=== PATIENT | female | born 1990 | race Caucasian/White ===

== ENCOUNTER → 2019-06-22 07:45 | Outpatient (CLI) | payer OTHER, SELFPAY ==
--- NOTE | ~2019-06-22 | US_ITS ---
EXAMINATION: US OB transvaginal DATE: 06/22/2019 08:12 INDICATION: Gestational dating. TECHNIQUE: Real-time transabdominal obstetric ultrasound. FINDINGS: No prior studies for comparison. The uterus measures 11.7 x 5.8 x 6.6 cm. There is an intrauterine gestational sac, with pole id entified. The crown rump length measures 1.66 cm, which correlates with a estimated gestational age of 8 weeks 0 days. heart tones are identified measuring 166 BPM. There is a small subchorioni c hemorrhage measuring 2.1 x 1.5 x 0.6 cm. Right ovary is unremarkable. Left ovary not visualized. IMPRESSION: 1. SL IUP with an EGA of 8 weeks, 0 days (EDC by current ultrasound of 02/01/2020). 2: Small subchorionic hemorrhage. Reviewed, dictated and finalized at location A. ENT ACCOUNTS MANAGER IMPRESSION: 1. SL IUP with an EGA of 8 weeks, 0 days (EDC by current ultrasound of 02/01/20 20). 2: Small subchorionic hemorrhage.
== END ==
PROVIDERS: Visit Provider Obstetrics & Gynecology Gynecology
DX: O20.0 Threatened abortion (principal); Z3A.08 8 weeks gestation of pregnancy
CPT/HCPCS: 76817

== ENCOUNTER → 2019-07-08 11:21 | Outpatient (CLI) | payer OTHER, SELFPAY ==
--- NOTE | ~2019-07-08 | US_ITS ---
EXAMINATION: US OB limited DATE: 07/08/2019 11:39 INDICATION: Rule out subchorionic hemorrhage. TECHNIQUE: Real-time transabdominal obstetric ultrasound. FINDINGS: Comparison to multiple prior studies sequentially, with oldest reviewed study dated . The uterus measures 13.1 x 6.3 x 7.3 cm. There is an intrauterine gestational sac, with pole id entified. The crown rump length measures 3.6 cm. No evidence for subchorionic hemorrhage on prior ex amination.. heart tones are identified measuring 168. IMPRESSION: 1. SL IUP with an EGA of 10 weeks, 2 days (EDC by initial ultrasound of 02/01/2020). 2: Interval resolution of subchorionic hemorrhage. Reviewed, dictated and finalized at location A. IMPRESSION: 1. SL IUP with an EGA of 10 weeks, 2 days (EDC by initial ultrasound of ). 2: Interval resolution of subchorionic hemorrhage.
== END ==
PROVIDERS: PCP Emergency Medicine; Visit Provider Obstetrics & Gynecology Gynecology
DX: O20.8 Other hemorrhage in early pregnancy (principal); Z3A.10 10 weeks gestation of pregnancy
CPT/HCPCS: 76815

== ENCOUNTER 2019-08-27 12:39 | Outpatient (CLI) | payer OTHER, SELFPAY ==
--- NOTE | ~2019-08-27 | US_ITS ---
EXAMINATION: US OB /maternal detail DATE: 08/27/2019 13:29 INDICATION: survey TECHNIQUE: Multiple obstetric sonographic images performed. FINDINGS: Comparison to 07/08/2019 There is a single living fetus in vertex presentation. The placenta is posterior without placenta pr evia. Placental margin is 5.1 cm to the cervix. Amniotic fluid volume is normal. cardiac activity and movement is noted with a heart rate of 149 beats per minute. The following anatomy was identified as normal: 3 vessel cord cord insertion kidneys urinary bladder stomach spine diaphragm ventricles cisterna magna cerebellum Survey is limited for evaluation of four-chamber heart and outflow tracts due to lie. The following biometric data were obtained: BPD: 38mm corresponds to gestational age 17 weeks 4 days. Head circumference: 148 mm corresponds to gestational age 17 weeks 6 days. Abdominal circumference: 112 mm corresponds to gestational age 17 weeks 5 days. Femur length: 24 mm corresponds to gestational age 17 weeks 2 days. Head circumference to abdominal circumference ratio: 1.23 (normal range for expected gestational age is 1.08-1.28). Estimated weight: 199 grams +/- 30 grams using Hadlock method. IMPRESSION: 1: Single living intrauterine with an estimated gestational age of 17weeks 5days by initial ultrasound measurements, with an EDC of 01/30/2020 in vertex presentation. Appropriate interval grow th. 2. Limited evaluation of the heart due to position. Otherwise, unremarkable survey . Reviewed, dictated and finalized at location A. IMPRESSION: 1: Single living intrauterine with an estimated gestational age of 17 weeks 5days by initial ultrasound measurements, with an EDC of 01/30/2020 in ve rtex presentation. Appropriate interval growth. 2. Limited evaluation of the heart due to position. Otherwise, unr emarkable survey.
== END 2019-08-27 12:40 | disposition home or self-care (01) ==
LOC: ANHIMG 12:43
PROVIDERS: PCP Emergency Medicine; Visit Provider Obstetrics & Gynecology Gynecology
DX: Z36.89 Encounter for other specified antenatal screening (principal); Z3A.17 17 weeks gestation of pregnancy
CPT/HCPCS: 76805

== ENCOUNTER 2019-09-13 12:38 | Outpatient (CLI) | payer OTHER, SELFPAY ==
--- NOTE | ~2019-09-13 | US_ITS ---
EXAMINATION: US OB limited DATE: 09/13/2019 15:34 INDICATION: Incomplete second trimester anatomic survey TECHNIQUE: Real-time ultrasound of the pelvis was performed. The interpreting radiologist was not pre sent for the study. COMPARISON: 08/27/2019 FINDINGS: There is a single living fetus in vertex presentation. The placenta is posterior. car diac activity and movement are noted. heart rate is 138 beats per minute (bpm). The amnio tic fluid index is subjectively normal. The heart appears normal. IMPRESSION: 1. Single living fetus in vertex presentation. 2. Normal heart. Reviewed, dictated and finalized at location A.
== END 2019-09-13 12:39 | disposition home or self-care (01) ==
PROVIDERS: PCP Emergency Medicine; Visit Provider Obstetrics & Gynecology Gynecology
DX: Z36.2 Encounter for other antenatal screening follow-up (principal)
CPT/HCPCS: 76815

== ENCOUNTER 2019-10-15 10:53 | Observation (INO) | payer OTHER, SELFPAY ==
[2019-10-15] VITALS (7 sets, daily range): BP systolic 114; BP diastolic 60; PULSE 72–92; O2SAT 100
--- NOTE | ~2019-10-15 | US_ITS ---
EXAMINATION: US OB limited DATE: 10/15/2019 12:06 INDICATION: Spotting in . Second trimester TECHNIQUE: Real-time ultrasound of the pelvis was performed. COMPARISON: Ultrasound 09/13/2019, 08/27/2019 FINDINGS: There is a single fetus in transverse lie. The placenta is posterior, 4.4 cm from the cervix. heart rate is 152 beats per minute (bpm). There are 2 small hematomas at the margin of the placenta w ith the larger measuring 2.9 x 0.5 x 1.1 cm. The amniotic fluid volume is subjectively normal. IMPRESSION: 1. Single living fetus in transverse lie. 2. Two small hematomas at the margin of the placenta. Reviewed, dictated and finalized at location A.
--- NOTE | 2019-10-15 10:53 | OBADM ---
This patient, Kapil Bailon, admitted to the OB room OB Post 117 for observation. Patient/family oriented to hospital policies and general routines including ID bracelet, bed and alarms, visiting hours, pain management, procedures, bathroom and other care routines, personal items, smoking policy, room service/diet, and visiting hours. Patient/Family are encouraged to report perceived risks to care and to ask questions if they do not understand what they are told or what they should do.
--- NOTE | 2019-10-18 09:38 | PM.OBTRLD ---
OB - Triage/Final Diagnosis Final Diagnosis (1) Spotting affecting in third trimester: Code(s): O26.853 - Spotting complicating , third trimester Status: Acute
== END 2019-10-15 12:55 | disposition home or self-care (01) ==
PROVIDERS: Admitting Provider Obstetrics & Gynecology Gynecology; PCP Emergency Medicine; Visit Provider Obstetrics & Gynecology Gynecology
DX: O26.852 Spotting complicating pregnancy, second trimester (principal); Z3A.25 25 weeks gestation of pregnancy
CPT/HCPCS: 76815; G0378; G0379

== ENCOUNTER 2019-11-06 15:45 | Outpatient (CLI) | payer OTHER, SELFPAY ==
--- NOTE | ~2019-11-06 | US_ITS ---
EXAMINATION: US OB follow up DATE: 11/06/2019 16:29 INDICATION: Subchorionic hemorrhage TECHNIQUE: Real-time transabdominal obstetric ultrasound. FINDINGS: Comparison to multiple prior studies sequentially, with oldest reviewed study dated 020. There is a single living fetus in vertex presentation. No evidence for subchorionic hemorrhage. The p lacenta is fundal/posterior without placenta previa. cardiac activity and movement is noted with a heart rate of 133 beats per minute. T he amniotic fluid volume is subjectively normal. The following biometric data were obtained: BPD: 69mm corresponds to gestational age 27 weeks 5 days. Head circumference: 249mm corresponds to gestational age 27 weeks 0 days. Abdominal circumference: 236mm corresponds to gestational age 27 weeks 6 days. Femur length: 52mm corresponds to gestational age 27 weeks 4 days. Estimated weight: 1112grams +/- 167grams.] IMPRESSION: 1. Single living intrauterine in vertex presentation with an estimated gestational age of 27 weeks 4 days by inititial ultrasound. Appropriate interval growth. 2. Normal placenta. Reviewed, dictated and finalized at location A. IMPRESSION: 1. Single living intrauterine in vertex presentation with an estimat ed gestational age of 27 weeks 4 days by inititial ultrasound. Appropriate int erval growth. 2. Normal placenta.
== END 2019-11-06 15:46 | disposition home or self-care (01) ==
PROVIDERS: PCP Emergency Medicine; Visit Provider Obstetrics & Gynecology Gynecology
DX: O36.8910 Maternal care for other specified fetal problems, first trimester, not applicable or unspecified (principal); Z3A.27 27 weeks gestation of pregnancy
CPT/HCPCS: 76816

== ENCOUNTER 2020-01-21 10:13 | Outpatient (CLI) | payer OTHER, SELFPAY ==
[2020-01-21 10:32] LABS: Hematocrit 41.1 % (37.0-47.0); Hemoglobin 13.7 g/dL (12.0-15.0); Mean Corpuscular HGB Conc 33.3 g/dl (32-36); Mean Corpuscular Hemoglobin 30.5 pg (26-34); Mean Corpuscular Volume 91.5 fl (80-100); Platelet Count Result 306 k/mm3 (150-375); Red Blood Count 4.49 M/mm3 (4.2-5.4); Red Cell Distribution Width 13.5 % (11.5-14.5); White Blood Count 9.4 K/mm3 (4.5-10.0)
[2020-01-22 07:56] LABS: Rapid Plasma Reagin Non-Reactive (NonReactive)
== END 2020-01-21 10:14 | disposition home or self-care (01) ==
LOC: ANHLAB 10:15
PROVIDERS: PCP Emergency Medicine; Visit Provider Obstetrics & Gynecology Gynecology
DX: Z34.93 Encounter for supervision of normal pregnancy, unspecified, third trimester (principal); Z3A.00 Weeks of gestation of pregnancy not specified
CPT/HCPCS: 36415; 85027; 86592; 86850; 86900; 86901

== ENCOUNTER 2020-01-22 06:51 | Inpatient (IN) | payer OTHER, SELFPAY ==
[2020-01-22] VITALS (56 sets, daily range): BP systolic 75–123; BP diastolic 44–76; PULSE 39–108; RESP 16–20; TEMP 35.8–36.9; O2SAT 86–100; BMI 35.4
--- NOTE | 2020-01-22 06:51 | LDADM ---
This patient, Kapil Bailon, was admitted to Labor/Delivery/Recovery 120 on 01/22/20 at 06:51. Plans for labor, pain management and were discussed with patient. Patient/family oriented to hospital policies and general routines including ID bracelet, bed and alarms, visiting hours, pain management, procedures, bathroom and other care routines, personal items, smoking policy, room service/diet and guest tray routines, security routines, and visiting hours. Patient/Family are encouraged to report perceived risks to care and to ask questions if they do not understand what they are told or what they should do. See OBIX for further documentation.
[2020-01-22] MEDS: LACTATED RINGERS 1,000 ML 125 ML IV CONT ×2 (07:30→08:19)
--- NOTE | 2020-01-22 08:02 | WPDANESEPPF ---
Anes - Initial Pre Proc Eval Procedure: Operation Date: 01/22/20 09:00 Proposed Procedures p Repeat Section With Bilateral Tubal Ligation - Martín Montano MD Date/Time: 01/22/20 08:02 Surgeon: Martín Montano MD Pre Op Diagnosis: C Section Patient Data Age: 29 Gender: F Height: 4 ft 11 in Weight: 79.5 kg Last Vital Signs Pulse 101 H 01/22/20 08:00 BP 123/69 01/22/20 08:00 Allergies Allergy/AdvReac Type Severity Reaction Status Date / Time No Known Allergies Allergy Unknown Unverified 05/01/14 04:48 Home Medications Medication Instructions Recorded Confirmed Type PNV cmb#95-ferrous fumarate-FA 1 tablet PO DAILY 01/02/20 01/02/20 History [] Patient hx anesthesia problems: none Family hx anesthesia problems: none PMFSH Family History Family History Other No pertinent family history Social History Social History Smoking status: Never smoker Substance use: never Gender identity (if verbalized by the patient): Female Spiritual care concerns: No Anes - Eval Final PreProcedure Day of Procedure 01/22/20 08:02 Patient weight: overweight Heart: regular rate and rhythm Lungs: clear to auscultation Airway: Mallampati scale class II Neurological: alert and oriented Last oral intake: >/= 8 hours ASA classification: II Emergent: no Anesthetic plan: proceed Anesthesia type and monitoring: regional spinal and standard monitoring Informed Consent: The patient's anesthetic plan and its attendant risks and benefits were discussed with the patient/family/POA. Questions were solicited and answers provided to the satisfaction of the patient/family/POA.
--- NOTE | 2020-01-22 08:45 | P.HP_ITS ---
H&P: HPI History of Present Illness Date/Time: 01/22/20 08:45 Chief complaint: C Section Narrative: Kapil Bailon is a 29 year old female At 39 weeks by 8 week ultrasound consistent with last menstrual period of April 22, 2019 for an EDC of January 28, 2020. complicated by prior section subchorionic hematoma which has resolved, Kcone Syndrome and insulin resistance. Patient desires permanent sterilization. Patient reports positive movement denies leakage of fluid. Review of Systems Review of Systems: All systems reviewed & are unremarkable except as noted in HPI and below PMFSH Past Medical History Medical History Cone dysfunction syndrome Surgical History Surgical History H/O: Family History Family History Other No pertinent family history Social History Social History Smoking status: Never smoker Substance use: never Gender identity (if verbalized by the patient): Female Spiritual care concerns: No Meds Home Medications and Allergies Home Medications Medication Instructions Recorded Confirmed Type PNV cmb#95-ferrous fumarate-FA 1 tablet PO DAILY 01/02/20 01/02/20 History [] Allergies Allergy/AdvReac Type Severity Reaction Status Date / Time No Known Allergies Allergy Unknown Unverified 05/01/14 04:48 Vital Signs Vital Signs - 24 hr 01/22/20 07:15 01/22/20 07:16 01/22/20 07:45 Temperature Pulse Rate 86 108 H 74 Blood Pressure 116/68 110/74 120/66 01/22/20 08:00 01/22/20 08:16 01/22/20 08:18 Temperature 36.9 C Pulse Rate 101 H 108 H 70 Blood Pressure 123/69 85/44 L 106/61 01/22/20 08:30 Temperature Pulse Rate 73 Blood Pressure 106/64 Exam 2 Cardio: Rate: regular rate Rhythm: regular rhythm GI: GI Palp: Yes Soft to palpation Other: Gravid : External Female Exam: normal external appearance Assessment and Plan Assessment and plan (1) H/O: : Code(s): Z98.891 - History of uterine scar from previous surgery Status: Acute Assessment and Plan: Scheduled for a repeat csection with tubal ligation. Risk and benefits reviewed with patient in detail.
--- NOTE | 2020-01-22 08:53 | WPDHPUPDATE1 ---
History and Physical Update Update Date/Time: 01/22/20 08:53 History and Physical has been reviewed, including an updated exam of the patient. There are NO changes in the patient's condition. Risks, benefits, and alternatives have been discussed and questions answered. Patient agrees to proceed with procedure.
[2020-01-22] MEDS: KETOROLAC 30 MG/ML VIAL (*BKC) IV PUSH ×3 (09:40→21:56)
[2020-01-22] MEDS: LORATADINE 10 MG TABLET PO (11:19)
--- NOTE | 2020-01-22 12:38 | PC.NURSE ---
Patient transferred to post room #287 per stretcher from labor and delivery. Support person present. Oriented to unit, room, information board, rooming in, admission packet and security measures. Patient verbalizes understanding.
[2020-01-22] MEDS: ONDANSETRON INJ 4 MG/2 ML VIAL IV PUSH (13:59)
--- NOTE | 2020-01-22 14:35 | PC.NURSE ---
Consulted with patient, mother reports infant is eagerly waking and latching without difficulties or discomfort. Mother pumped and bottle fed last child due to latch issues. Reviewed infant feeding cues, frequencies, duration of feedings, feeding elimination flow sheet, and signs of adequate intake. Demonstrated stimulation techniques to wake for feeding. Assisted with to breast. Reviewed positioning/alignment in cross cradle, holding breast in U hold and guided asymmetrical latch on. Discussed rational for each. was able to latch correctly. nursed eagerly, with steady draws and frequent swallowing noted. Reviewed signs of a correct latch, effective nursing and suck swallow ratio. was able to maintain latch without discomfort to mother. Nipple care reviewed. Advised to stimulate to keep awake and nursing effectively for increased intake and to assist with maintaining deep latch. Demonstrated how to adjust latch more deeply while feeding. Instructed mother to call out for RN assistance if she is unable to latch for feeding or she has discomfort with nursing. Instructed feeding should be initiated three hours from start of last feeding or if feeding cues are noted before. Mother voiced understanding of information shared.
[2020-01-22] MEDS: DEXTROSE 5%/0.45% SOD CHL 1,000 ML 125 ML IV CONT (16:09)
[2020-01-23 04:05] VITALS: BP 95/61; PULSE 63; RESP 18; TEMP 36.8; O2SAT 100
[2020-01-23 05:10] LABS: Basophils Percent Auto 0.1 % (0.2-1.2); Eosinophils Absolute Auto 0.1 K/mm3 (0-0.3); Eosinophils Percent Auto 0.5 % (0-4.4); Hematocrit 35.2 % (37.0-47.0); Hemoglobin 11.6 g/dL (12.0-15.0); Immature Granulocyte Absolute 0.07 K/mm3 (0.00-0.031); Immature Granulocyte Percent A 0.6 % (0-0.5); Lymphocytes Absolute Auto 1.78 K/mm3 (0.9-3.2); Lymphocytes Percent Auto 15.7 % (18.3-44.2); Mean Corpuscular Hemoglobin 29.8 pg (26-34); Mean Corpuscular Volume 90.5 fl (80-100); Mean Platelet Volume 9.2 fl (7.4-10.4); Monocytes Absolute Auto 0.8 K/mm3 (0.1-0.6); Monocytes Percent Auto 6.8 % (2.6-8.5); Neutrophils Absolute Auto 8.6 K/mm3 (1.3-6.7); Neutrophils Percent Auto 76.3 % (45.5-73.1); Platelet Count Result 283 k/mm3 (150-375); Red Blood Count 3.89 M/mm3 (4.2-5.4); Red Cell Distribution Width 13.4 % (11.5-14.5); White Blood Count 11.3 K/mm3 (4.5-10.0)
[2020-01-23 07:00] VITALS: BP 102/63; PULSE 90; RESP 16; TEMP 36.2; O2SAT 100
[2020-01-23] MEDS: KETOROLAC 30 MG/ML VIAL (*BKC) IV PUSH (07:02)
[2020-01-23] MEDS: HYDROcodone/acetaminophen (*CRX) 5-325 MG TABLET 1 TAB PO ×4 (07:03→20:04)
[2020-01-23] MEDS: MULTIVIT/MIN/PREN/FOL AC/IRON TABLET 1 TAB PO (07:04)
[2020-01-23] MEDS: DOCUSATE SODIUM 100 MG CAPSULE PO ×2 (07:04→16:45)
[2020-01-23] MEDS: SIMETHICONE 80 MG TAB.CHEW PO (07:04)
--- NOTE | 2020-01-23 09:01 | WPDANLDPN2 ---
Anes-Prog Note L&D Date/Time: 01/23/20 09:01 Comfortable throughout: section Neuraxial method: spinal Epidural/Spinal procedure site: clean & non-tender Neuro status: Neuro function grossly intact. Cardiovascular status: normal Respiratory status: normal Airway patency: baseline Mental status: baseline Post-Op hydration status: normal Vital Signs: Last Vital Signs Temp 36.8 C 01/23/20 04:05 Pulse 63 01/23/20 04:05 Resp 18 01/23/20 04:05 BP 95/61 L 01/23/20 04:05 Pulse Ox 100 01/23/20 04:05 Pain score (VAS): 0 I/O: Intake & Output 01/22/20 01/23/20 01/23/20 23:59 07:59 15:59 Intake Total 160 1500 Output Total 300 4200 Balance -140 -2700 Post-procedural complaints: none Patient feedback: Patient satisfied with anesthetic care.
--- NOTE | 2020-01-23 09:01 | WPDANLDNPN2 ---
Anes-Prog Note L&D-Neuraxial Date/Time: 01/23/20 09:01 Neuraxial medications: intrathecal PF morphine Opiod-related complaints: none Patient feedback: Patient satisfied with post-operative pain management.
[2020-01-23] MEDS: IBUPROFEN 600 MG TABLET PO ×2 (13:28→20:06)
--- NOTE | 2020-01-23 17:14 | P.PNOB_ITS ---
OB - PN: Subj Subjective Date/time seen: 01/23/20 17:14 no complaints pain controlled OB - PN: Obj Data Labs CBC & Chem 7: 01/23/20 04:20 Labs: Laboratory Results - last 24 hr 01/23/20 04:20 WBC 11.3 H RBC 3.89 L Hgb 11.6 L Hct 35.2 L MCV 90.5 MCH 29.8 MCHC 33.0 RDW 13.4 Plt Count 283 MPV 9.2 Immature Gran % (Auto) 0.6 H Neut % (Auto) 76.3 H Lymph % (Auto) 15.7 L Rapides % (Auto) 6.8 Eos % (Auto) 0.5 Baso % (Auto) 0.1 L Lymph # (Auto) 1.78 Rapides # (Auto) 0.8 H Eos # (Auto) 0.1 Baso # (Auto) 0.0 Abs Immat Gran (auto) 0.07 H Absolute Neuts (auto) 8.6 H Absolute Nucleated RBC 0.0 Nucleated RBC % 0.0 OB - PN A/P Assessment and Plan (1) H/O: : Code(s): Z98.891 - History of uterine scar from previous surgery Status: Acute Assessment and Plan: s/p repeat csection doing well. Time Spent With Patient Time: Total time spent is greater than 50% in coordination of care (as documented) at patient's floor/unit and/or counseling patient:
[2020-01-23 20:10] VITALS: BP 98/58; PULSE 64; RESP 17; TEMP 36.5; O2SAT 96
[2020-01-24] MEDS: HYDROcodone/acetaminophen (*CRX) 5-325 MG TABLET 1 TAB PO ×2 (03:00→11:10)
[2020-01-24] MEDS: IBUPROFEN 600 MG TABLET PO ×2 (03:00→10:50)
--- NOTE | 2020-01-24 05:25 | PM.PROC ---
Procedure Note - Detailed Date of procedure: 01/24/20 Pre-op diagnosis: C Section desires permanent sterilization Post-op diagnosis: same Procedure performed: repeat ltcs and bilateral tubal ligation Description of procedure: The patient was taken to the operating room with IV running. She was prepared and draped in a normal sterile fashion after a spinal anesthesia was performed. The patient was taped placed in the leftward tilt. A Pfannenstiel skin incision was made with scalpel carried down to the underlying layer of fascia. This fascial incision was excised in the midline and extended bilaterally with Maldonado scissors. The anterior portion of the fascia was grasped with Kisha clamps elevated and dissected off the rectus muscles. The inferior aspect of the incision was grasped with clamps elevated dissected off the rectus muscles. The rectus muscles were in the midline peritoneum was entered bluntly. And the lower uterine segment was noted a bladder blade was inserted sickle uterine peritoneum was grasped with peons and sharply Metzenbaum scissors bladder blade was created. A transverse incision was made with the scalpel this incision was then extended bluntly. The head was delivered . The remainder of the fetus delivered cord was clamped and cut and the fetus was handed off to the waiting nurse. Cord blood was obtained for glasses were obtained. The placenta was delivered spontaneously. The uterus is exteriorized and cleared of all clots and debris. The uterine incision was then closed with 0 Monocryl in a running locked fashion. Second layer the same suture was used to imbricate this incision. Tubes were grasped with babcocks transected and suture ligated bilaterally. Uterus was returned to the abdomen the gutters were irrigated and cleared of all clot and debris uterine incision was hemostatic. The muscles were examined hemostasis noted the fascia was closed with O Vicryl in a running fashion. the subcutaneous tissue was irrigated and closed with 3 0 plain gut and the skin was closed with 0 Vicryl on a Mike needle sponge lap and needle counts were correct x2 patient tolerated procedure well patient received 2 g Ancef prior to skin incision. Surgeon: Martín Montano MD Estimated blood loss (mL): 145 Drains: Yes Packing: No Pathology: none sent Complications: None Condition: stable Disposition: PACU Findings: male vertex
--- NOTE | 2020-01-24 05:29 | PM.OBPRVD ---
OB - Delivery Note Procedure Delivery date: 01/23/20 Procedure: Procedures Operation Date: 01/22/20 09:00 Actual Procedures Side Surgeon p Repeat Section With Bilateral Tubal Ligation Bilateral Martín Montano MD Intrapartal events: None Route of delivery: Estimated blood loss (mL): 145 Anesthesia type: Spinal Disposition: PACU Baby Date of : 01/23/20 Time of : 07:40 Weeks of gestation at delivery: 39 gender: Male Weight (pounds): 7 Weight (ounces): 4 presentation: vertex Placenta delivery description: Spontaneous cord vessel description: 3 Vessels score one minute: 8 score five minutes: 9
[2020-01-24] MEDS: HYDROcodone/acetaminophen (*CRX) 10-325 MG TABLET 1 TAB PO (07:53)
[2020-01-24] MEDS: DOCUSATE SODIUM 100 MG CAPSULE PO (07:54)
[2020-01-24] MEDS: SIMETHICONE 80 MG TAB.CHEW PO (07:54)
[2020-01-24] MEDS: MULTIVIT/MIN/PREN/FOL AC/IRON TABLET 1 TAB PO (07:54)
[2020-01-24 08:40] VITALS: BP 111/57; PULSE 60; RESP 16; TEMP 36.6; O2SAT 99
--- NOTE | 2020-01-24 11:05 | PC.NURSE ---
Mother is able to independently latch infant with appropriate positioning/alignment. She denies any nipple discomfort, is feeding as required and waking to feed if needed. has had at least 8 effective feedings in the past 24 hours, and is currently meeting outcomes for weight, output, jaundice and feeding frequencies. Mother states she feels confident to continue effective at home. Reviewed transition to breast milk, signs of adequate intake, and engorgement/relief. Instructed to call ICP if intake/output less than required. Reviewed regular medications mother is taking. Information provided per Shayna. Reviewed community resources on the [facility] website and in the Mom/Baby guide. Information on outpatient services provided. Mother has no further questions at this time.
[2020-01-25 08:47] VITALS: BP 118/67; PULSE 70; RESP 16; TEMP 36.7; O2SAT 98
--- NOTE | 2020-02-01 11:20 | PM.OBDSVD ---
DS: Admitting Diagnosis Admitting Diagnosis Admitting Diagnosis: C Section DS: Discharge Diagnosis Discharge Diagnosis (1) H/O: : Code(s): Z98.891 - History of uterine scar from previous surgery Status: Acute OB - DS: Summary OB Procedures : Ultrasound OB Procedures Intrapartum: OB Procedures: : None Peripartum Data Procedures: Procedures Operation Date: 01/22/20 09:00 Actual Procedures Side Surgeon p Repeat Section With Bilateral Tubal Ligation Bilateral Martín Montano MD Time Spent with Patient Time attestation: Total time spent providing and/or coordinating discharge services: DS: Data Data Completed and Pending Completed studies during hospitalization: Pending at discharge 01/22/20 09:47 Surgical [PTH] Routine Discharge Plan Discharge Attending physician on discharge: Martín Montano Consulting providers: Forrest Ferrara Discharging Clinician: Martín Montano Patient Disposition: Home, Self-Care Activity: may drive after 2 weeks and pelvic rest Diet: regular Discharge Instructions: Education: Mom and Baby Guide Given to: Mother Follow-Up: Call your delivering provider's office for an appointment to be seen in: 1 week for incision check then again at 6 weeks for exam Mom and baby should come to the [facility] for the follow-up appointment. Appointment Date/Time: January 25, 2020 at 9:00 am What to expect at your follow-up visit: Blood Pressure Check Physical Assessment Call [phone] if you are unable to keep your appointment time. BREAST CARE: * Wear a snug supportive bra. * For engorgement discomfort: Breast Feeding: * Apply warm moist washcloths * Express milk as needed to relieve engorgement * Wear loose clothing * For sore nipples: * Identify correct latch-on * Apply warm moist washcloths before and after nursing * Air dry nipples after nursing * May apply Lansinoh cream to nipples ABDOMINAL INCISION: (if applicable) * Allow incision to air dry * Do NOT use lotions for powders on your incision * When showering, allow soap and water to run over the incision, but do not wash incision EPISIOTOMY/PERINEAL CARE: * Until bleeding stops, use your hanny bottle after urinating * Change your pad frequently throughout the day * No tub baths until seen by your physician - You may shower ACTIVITY: * Rest as much as possible. * Do not exercise or lift anything heavier than your baby (such as laundry or other children.) * Avoid stairs or driving as much as possible. * Do not put anything into the vagina. No douching, tampons, or sexual activity until seen by physician. NOTIFY PHYSICIAN IF YOU HAVE ANY QUESTIONS OR IF ANY OF THE FOLLOWING SYMPTOMS OCCUR: * If your episiotomy or incision becomes red, swollen, or more painful than what you have experienced in the hospital. * If your vaginal bleeding becomes foul smelling. * If your vaginal bleeding becomes more heavy than a period or if your bleeding changes from pink to bright red. However, you may pass an occasional walnut-sized clot once or twice for the first week . * If you experience a sharp, shooting pain in you calves. * If you discover a hard, reddened area on your breast or if you experience flu-like symptoms. DIET: * Eat regular, well-balanced meals. * Drink plenty of fluids daily. If , drink to thirst. Stand Alone Forms: General Discharge Information Follow-up/Referrals: Martín Montano MD [Physician] - Discharge Medications: New hydrocodone-acetaminophen 5-325 mg Tablet 1 tab PO Q3H PRN (Reason: Moderate Pain (4-6)) Qty: 30 RF: 0 ibuprofen 600 mg Tablet 600 mg PO Q6H PRN (Reason: Cramping) Qty: 60 RF: 0 Continued PNV cmb#95-ferrous fumarate-FA [] 28 mg iron- 800 mcg Tablet
== END 2020-01-24 13:00 | disposition home or self-care (01) | DRG 785 ==
LOC: ANHLDR 06:56 → ANHOB2 12:56
PROVIDERS: Admitting Provider Obstetrics & Gynecology; PCP Emergency Medicine; Visit Provider Obstetrics & Gynecology
PROC: 10D00Z1 Extraction of Products of Conception, Low, Open Approach (ICD-10-PCS; CPT 59514; principal; 2020-01-22 09:00)
DX: O34.211 Maternal care for low transverse scar from previous cesarean delivery (principal); Z30.2 Encounter for sterilization; O69.9XX0 Labor and delivery complicated by cord complication, unspecified, not applicable or unspecified; Z3A.39 39 weeks gestation of pregnancy; Z37.0 Single live birth
CPT/HCPCS: 36415; 85025; 88302; A9270; J0131; J1885; J2175; J2274; J2370; J2405; J2590; J7120

== ENCOUNTER → 2021-04-27 12:19 | Outpatient (CLI) | payer OTHER, SELFPAY ==
--- NOTE | ~2021-04-27 | US_ITS ---
EXAMINATION: US soft tissue abdomen DATE: 04/27/2021 12:40 INDICATION: Umbilical hernia without obstruction TECHNIQUE: Multiple grayscale and Doppler ultrasound images of the region of concern at the umbilicus were obtained. COMPARISON: None FINDINGS: No definitive umbilical hernia appreciated. There is however significant acoustic shadowing measuring approximately 2.5-3 cm craniocaudal length and 2 cm medial to lateral length extending deep from the region of the umbilicus which could obscure a small umbilical hernia. No other abnormal masses or fl uid collections identified. IMPRESSION: 1. No evident umbilical hernia although could not exclude a <2-3 cm hernia obscured within a region o f acoustic shadowing extending deep from the umbilicus. Would consider CT for further evaluation if m ore definitive determination is required. Reviewed, dictated and finalized at location A. COMMUNICATIONS CABLE JOINTER IMPRESSION: 1. No evident umbilical hernia although could not exclude a <2-3 cm hernia obsc ured within a region of acoustic shadowing extending deep from the umbilicus. W ould consider CT for further evaluation if more definitive determination is req uired.
== END ==
DX: K42.9 Umbilical hernia without obstruction or gangrene (principal); Z01.818 Encounter for other preprocedural examination
CPT/HCPCS: 76705

== ENCOUNTER 2021-04-30 10:11 | Outpatient (CLI) | payer OTHER, SELFPAY ==
--- NOTE | 2021-04-30 | ECG_ITS ---
Measurements Intervals Decker Rate: 69 P: 55 CO: 142 QRS: 37 QRSD: 96 T: 25 QT: 368 QTc: 395 Interpretive Statements SINUS RHYTHM WITH SINUS ARRHYTHMIA BASELINE ARTIFACT- II, III, AVR, AVF NORMAL ECG Electronically Signed On 04-30-2021 14:43:53 [employer]ANK OPERATIONS OFFICER by Tc Rouse D.O.
== END 2021-04-30 10:12 | disposition home or self-care (01) ==
LOC: ANHLAB 10:17 → ANHCARD 10:28
PROVIDERS: PCP Nurse Practitioner Family
DX: Z01.818 Encounter for other preprocedural examination (principal)
CPT/HCPCS: 93005

== ENCOUNTER 2021-08-06 11:49 | Emergency (ER) | payer OTHER, SELFPAY ==
--- NOTE | ~2021-08-06 | XR_ITS ---
EXAMINATION: XR chest 2V DATE: 08/06/2021 12:42 INDICATION: Fever. TECHNIQUE: Frontal and lateral views of the chest were obtained. COMPARISON: None. FINDINGS: The chest demonstrates clear lungs without pneumonia, pleural effusion, or pneumothorax. Th e heart size is normal. IMPRESSION: 1. No acute cardiopulmonary disease. Reviewed, dictated and finalized at location A.
[2021-08-06 11:52] VITALS: BP 141/84; PULSE 108; RESP 18; TEMP 36.8; O2SAT 100
[2021-08-06 12:44] LABS: Basophils Percent Auto 0.4 % (0.2-1.2); Eosinophils Absolute Auto 0.1 K/mm3 (0-0.3); Eosinophils Percent Auto 1.2 % (0-4.4); Hematocrit 42.2 % (37.0-47.0); Hemoglobin 13.4 g/dL (12.0-15.0); Immature Granulocyte Absolute 0.02 K/mm3 (0.00-0.031); Immature Granulocyte Percent A 0.3 % (0-0.5); Lymphocytes Absolute Auto 1.44 K/mm3 (0.9-3.2); Lymphocytes Percent Auto 21.6 % (18.3-44.2); Mean Corpuscular HGB Conc 31.8 g/dl (32-36); Mean Corpuscular Hemoglobin 29.9 pg (26-34); Mean Corpuscular Volume 94.2 fl (80-100); Mean Platelet Volume 8.2 fl (7.4-10.4); Monocytes Absolute Auto 0.5 K/mm3 (0.1-0.6); Monocytes Percent Auto 7.5 % (2.6-8.5); Neutrophils Absolute Auto 4.6 K/mm3 (1.3-6.7); Platelet Count Result 358 k/mm3 (150-375); Red Blood Count 4.48 M/mm3 (4.2-5.4); Red Cell Distribution Width 12.9 % (11.5-14.5); White Blood Count 6.7 K/mm3 (4.5-10.0)
[2021-08-06 12:59] LABS: Lactic Acid Reflex 2.4 mmol/L (0.7-2.1)
[2021-08-06 13:00] LABS: Alanine Aminotransferase 12 U/L (4-35); Albumin Level 4.5 g/dL (3.5-5.1); Alkaline Phosphatase 73 U/L (38-126); Anion Gap 8 mmol/L (8-16); Aspartate Amino Transferase 22 U/L (14-36); Bilirubin,Total 0.2 mg/dL (0.2-1.3); Blood Urea Nitrogen 7 mg/dL (7-17); Calcium 9.1 mg/dL (8.4-10.2); Carbon Dioxide 26 mmol/L (22-30); Chloride 106 mmol/L (98-107); Estimated CRCL calculation 107 ml/min; Estimated Glomerular Filt Rate > 60; Glucose 118 mg/dL (65-110); Potassium 4.5 mmol/L (3.4-5.0); Sodium 140 mmol/L (137-145)
[2021-08-06] MEDS: ACETAMINOPHEN 325 MG TABLET 650 MG PO (13:39)
[2021-08-06] MEDS: SODIUM CHLORIDE 0.9% IV 1,000 ML 999 ML IV CONT (13:39)
[2021-08-06] MEDS: KETOROLAC 30 MG/ML VIAL (*BKC) IV PUSH (13:40)
--- NOTE | 2021-08-06 13:41 | ED.GENADULT ---
HPI - General Adult General Chief complaint: Wound/Laceration Stated complaint: infection Time Seen by Provider: 08/06/21 12:19 Source: patient and RN notes reviewed Mode of arrival: ambulatory Limitations: no limitations History of Present Illness HPI narrative: Patient is a 30 years old white female status post Mommy me over plastic surgery including abdominoplasty and breast reduction and breast implant June 18, 2021. In the last 48 hours the patient noticed that she have some slight opening of the suprapubic surgical scar with yellow discharge and right breast with blue discharge and fever. Patient denies any nausea, vomiting. Related Data Home Medications Medication Instructions Recorded Confirmed PNV cmb#95-ferrous fumarate-FA 1 tablet PO DAILY 01/02/20 01/02/20 [] Allergies Allergy/AdvReac Type Severity Reaction Status Date / Time No Known Allergies Allergy Unknown Verified 08/06/21 12:30 Review of Systems Review of Systems: CONSTITUTIONAL: Denies fever, chills, or sweats. EYES: Denies visual changes, redness, or discharge. ENT: Denies rhinorrhea, congestion, sore throat, or otalgia. CARDIOVASCULAR: Denies chest pain, palpitations, or edema. RESPIRATORY: Denies cough or dyspnea. GASTROINTESTINAL: Denies abdominal pain, nausea, vomiting, or diarrhea. GENITOURINARY: Denies dysuria or hematuria. SKIN: Denies rash or itching. MUSCULOSKELETAL: Denies back pain, joint pain, or myalgia. NEUROLOGIC: Denies headache, numbness, or weakness. PSYCHIATRIC: Denies anxiety or depression. PMFSH Past Medical History Medical History (Updated 08/06/21 @ 16:23 by Jaswinder Rodriguez MD) Cone dysfunction syndrome Surgical History Surgical History H/O: Family History Family History Other No pertinent family history Social History Social History Smoking status: Never smoker Substance use: never Gender identity (if verbalized by the patient): Female Spiritual care concerns: No Exam Narrative: General appearance: Well-developed, well-nourished Skin: Suprapubic wound dehiscence with slight yellow discharge, right breast showed the same. Head: Normocephalic, nontraumatic Eyes: Clear conjunctiva ENT: Oropharynx normal, ears normal, nose normal Neck: Supple, nontender Chest and respiratory: Airway patent, no respiratory distress, no accessory muscle use Heart: Regular rate/rhythm Abdomen: Soft, nontender, no organomegaly, quiet bowel sounds Vascular: Normal peripheral pulses, normal capillary refill. 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 Rivera Call Dr. Farias Date: 08/06/21 Time: 15:58 Consultation #2: Dr. Farias Transfer patient to [facility] Date: 08/06/21 Time: 15:59 Consultation #3: Dr. Mark, ED of [facility] who accepted patient transfer Date: 08/06/21 Time: 15:59 Vital Signs Vital signs: Vital Signs Temperature 36.8 C 08/06/21 11:52 Pulse Rate 108 H 08/06/21 11:52 Respiratory Rate 18 08/06/21 11:52 Blood Pressure 141/84 H 08/06/21 11:52 Pulse Oximetry 100 08/06/21 11:52 Temperature 36.8 C 08/06/21 11:52 Pulse Rate 108 H 08/06/21 11:52 Respiratory Rate 18 08/06/21 11:52 Blood Pressure 141/84 H 08/06/21 11:52 Pulse Oximetry 100 08/06/21 11:52 Medical Decision Making Vital Signs Vital Signs: Vital Signs
[2021-08-06 15:42] LABS: Reflex Lactic Acid Yes or No Add Lactic
--- NOTE | 2021-08-06 16:32 | PC.NURSE ---
Pt refusing transfer by ambulance to [facility]. Refusal paper signed. Report called to [facility]
[2021-08-06 16:46] VITALS: BP 102/73; PULSE 91; RESP 16; TEMP 37; O2SAT 100
== END 2021-08-06 16:53 | disposition short-term general hospital (02) ==
PROVIDERS: Emergency Provider Emergency Medicine; PCP Nurse Practitioner Family
DX: T81.41XA Infection following a procedure, superficial incisional surgical site, initial encounter (principal); H35.53 Other dystrophies primarily involving the sensory retina
CPT/HCPCS: 36415; 71046; 80053; 83605; 85025; 87040; 96365; 96366; 96375; 99285; A9270; J1885; J3370; J7030